=== PATIENT | female | born 1980 | race Caucasian/White ===

== ENCOUNTER → 2024-02-10 13:31 | Outpatient (REF) | payer OTHER, SELFPAY | LOC: WDC 13:31 | PROVIDERS: ATTENDING PHYSICIAN Obstetrics & Gynecology; FAMILY PHYSICIAN Family Medicine | DX: Z12.31 Encounter for screening mammogram for malignant neoplasm of breast (principal) | CPT/HCPCS: 77063; 77067 ==

== ENCOUNTER 2024-09-09 13:16 | Emergency (ER) | payer OTHER, SELFPAY ==
[2024-09-09 13:20] VITALS: BP 183/120
--- NOTE | 2024-09-09 14:01 | ED.GENMED ---
History of Present Illness
General
Chief Complaint: Blood Pressure Problem
Source: patient
Time Seen by Provider: 09/09/24 13:31
History of Present Illness
History of Present Illness:
44-year-old female presents to the emergency room concerned that her heart rate was elevated as well as her blood pressure. 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 While there she was told her blood pressure
was a bit high. She was instructed to monitor it. She did not really start monitoring her blood pressure until the past couple weeks. If blood pressure has remained elevated. Today she went for a run and after her run noted that her heart rate
did not return to normal. She does not feel particular short of breath. Her exercise tolerance was normal. She denies any unexpected weight loss or weight gain. She has been experiencing some low back pain which has prevented her from exercising
as much as she normally would and therefore she gained about 5 pounds but again not unexpected based upon her activity level. She denies any diarrhea or constipation. Patient states she has begun experiencing hot flashes and presumably symptoms of
early menopause.
Phy Exam
Physical Exam
Physical Exam:
General: Awake, Alert, Oriented X3. No acute distress.
Vitals: Mildly tachycardic, hypertensive
Head: Atraumatic
Eyes: Pupils equal, EOMI
Throat: Airway intact, no exudates
Neck: Trachea midline
Lungs: Clear and equal b/l
Heart: Regular rate, no murmurs
Abd: Soft, Nontender, No pulsatile mass
Neuro: Nonfocal
Skin: Warm, dry, no rash
Extremities: pulses equal b/l, no edema
Course
Orders/Labs/Results
Orders:
Orders
09/09/24 13:22
EKG [Electrocardiogram (*1)] Urgent
Reason for Study: Hypertension, Benign
EKG- Treatment ONCE
09/09/24 14:00
Test Result ONCE
09/09/24 14:38
Complete Blood Count/With Diff Urgent
Comprehensive Metabolic Panel Urgent
HCG, Serum Qualitative Screen Urgent
TSH Reflex To Free T4 Urgent
Abnormal Lab Results
09/09/24
14:38
WBC 13.1 H 10^3/uL
(4.8-10.8)
MCH 31.6 H pg
(27.0-31.0)
Absolute Neuts (auto) 10.2 H 10^3/uL
(1.4-6.5)
Absolute Monos (auto) 0.7 H 10^3/uL
(0.1-0.6)
Neutrophils % 78.3 H %
(42.2-75.2)
Lymphocytes % 15.3 L %
(20.5-51.1)
09/09/24 14:38
09/09/24 14:38
Vital Signs
Initial and Last Documented VS:
Initial Vital Signs
Temp Pulse Resp BP Pulse Ox
98.7 F 110 18 183/120 99
09/09/24 13:20 09/09/24 13:20 09/09/24 13:20 09/09/24 13:20 09/09/24 13:20
Last Documented Vital Signs
Temp Pulse Resp BP Pulse Ox
97.6 F 98 16 140/85 99
09/09/24 17:48 09/09/24 17:48 09/09/24 17:48 09/09/24 17:48 09/09/24 17:48
MDM/Problems Addressed
Differential Diagnosis Includes:
Essential hypertension, hypothyroidism, dehydration
MDM/Problems Addressed:
Patient presents for evaluation of elevated blood pressure and elevated heart rate. On arrival here the patient was noted be tachycardic to her heart rate returned to normal sinus rhythm without intervention. Heart rate also improved. Labs here
are remarkable for a mildly elevated white count which is quite nonspecific. No other abnormalities. Patient has no chest pain, shortness of breath to suggest PE. She was able to run today without any exercise intolerance. Overall suspicion for
any pathology requiring hospitalization is extremely low. Will have patient follow with her primary care doctor for potential initiation of antihypertensive therapy
*Pulse Oximetry
SaO2: 99
Oxygen Mode of Delivery: Room air
Patient hypoxic: no
*Critical Care Note
Total Time (30-74mins, 75-104mins- exclusive of procedures): Not Applicable
ED Attending Note
-
Portions of this chart may have been created with voice recognition software.� Occasional wrong word or��sound alike� substitutions may have occurred due to the inherent limitations of voice recognition software.
Discharge Plan
Departure
Patient Disposition: Home (Routine Discharge)
Date of Disposition: 09/09/24
Time of Disposition: 17:09
Patient with high blood pressure during this ER visit?: Yes
Condition: Good
Discharge Problem:
Hypertension
Instructions: High Blood Pressure (DC)
Prescriptions:
No Action
Vitamin 1 EACH tablet
1 tab PO DAILY
ibuprofen 600 MG tablet
600 mg PO Q4HPRN PRN (Reason: cramps) Qty: 0 0RF
Referrals:
Nata Mejias DO [Family Provider, Family Practice]
Activity Restrictions/Additional Instructions:
Your blood work here is all essentially normal. Your blood pressure was high when you arrived but has come down to a more reasonable level. It is best for your family doctor to initiate treatment for blood pressure as it will need to be followed
closely and there are multiple meds to choose from so it is best to allow them to use the medications that they prefer.
Interventions
Interventions:
*Risk Screen - Suicide Last Done: 09/09/24 13:22
*General Assessment Last Done: 09/09/24 13:22
*Neglect/Abuse Screening Last Done: 09/09/24 13:22
*ED- Fall Risk Assessment Last Done: 09/09/24 14:26
*ED COVID-19 Vaccine History Last Done: 09/09/24 13:22
*Nursing Disposition Last Done: 09/09/24 17:48
ED- Cardiac Assessment Last Done: 09/09/24 15:30
ED- Neurological Assessment Last Done: 09/09/24 15:30
ED- Pulmonary Assessment Last Done: 09/09/24 15:30
Discharge Date and Time
Discharge Date/Time: 09/09/24 17:49
Print Language: BAHAMIAN
[2024-09-09 14:24] VITALS: BP 142/81
[2024-09-09 14:26] VITALS: BMI 25.8
[2024-09-09 14:34] VITALS: BP 148/90
[2024-09-09 14:46] LABS: Hematocrit 40.0 % (37.0-47.0); Hemoglobin 13.9 g/dL (12.0-16.0); Mean Corp Hgb Conc. 34.8 g/dL (33.0-37.0); Mean Corpuscular Volume 90.9 fL (81.0-99.0); Nucleated Red Blood Cells % 0 %; Platelet Count 330 10^3/uL (130-400); Red Cell Dist. Width 13.2 % (11.5-14.5)
[2024-09-09 15:00] VITALS: BP 147/87
[2024-09-09 15:12] LABS: HCG, Serum Qualitative Screen Negative
[2024-09-09 15:17] LABS: ALT (SGPT) 11 U/L (0-35); AST (SGOT) 19 U/L (14-36); Albumin 4.1 g/dl (3.5-5.0); Alkaline Phosphatase 51 U/L (38-126); Blood Urea Nitrogen 15 mg/dl (7-17); Calcium 9.6 mg/dl (8.4-10.2); Carbon Dioxide 25 mmol/L (22-30); Chloride 105 mmol/L (98-107); Estimated Creatinine Clearance 74 ml/min; Glucose 98 mg/dl (70-99); Potassium 4.3 mmol/L (3.5-5.1); Sodium 138 mmol/L (135-145); Total Protein 6.9 g/dl (6.3-8.2); eGFR > 60.00
[2024-09-09 16:00] VITALS: BP 140/85
[2024-09-09 17:48] VITALS: BP 140/85
== END 2024-09-09 17:49 | disposition home or self-care (01) ==
LOC: EMR 13:16
PROVIDERS: EMERGENCY PHYSICIAN Emergency Medicine; FAMILY PHYSICIAN Family Medicine
DX: I10 Essential (primary) hypertension (principal); R23.2 Flushing; R00.0 Tachycardia, unspecified
CPT/HCPCS: 99284; 80053; 84443; 84703; 85025; 93005

== ENCOUNTER → 2024-11-16 08:20 | Outpatient (REF) | payer OTHER, SELFPAY | LOC: RAD 08:20 | PROVIDERS: ATTENDING PHYSICIAN Specialist; FAMILY PHYSICIAN Family Medicine | DX: I10 Essential (primary) hypertension (principal) | CPT/HCPCS: 76775 ==